=== PATIENT | male | born 1965 | race Caucasian/White ===

== ENCOUNTER 2017-05-09 05:15 | Emergency (ER) | payer OTHER ==
[~2017-05-09] VITALS: Ht 177.8 cm; Wt 117.9 kg
[2017-05-09 05:19] VITALS: BP 152/93
--- NOTE | 2017-05-09 06:04 | PHYS DOC ---
Past Medical History Past Medical History: No Pertinent History Past Surgical History: Other Additional Past Surgical Histo: KNEE SURGERY Alcohol Use: None Drug Use: None Adult General Chief Complaint Chief Complaint: LACERATION/AVULSION HPI HPI Patient is a 51 year old who presents with fall from a ladder while at work. Patient slipped and fell catching his hard hat on the ladder as he fell. Patient has 6 cm stellate laceration over right parietal scalp. He is controlled. Tetanus is out of date. Patient denies loss of consciousness. Denies posterior neck pain or back pain. Reports right lower paravertebral lumbar back pain. Back pain is described as minor and more chronic in nature. No other injuries or pain complaints. Patient is not on anticoagulation therapy. Review of Systems Review of Systems ROS as per HPI.[] All other systems were reviewed and found to be within normal limits, except as documented in this note. Current Medications Current Medications Current Medications Medications (Trade) Dose Ordered Sig/Feng Start Time Stop Time Status Last Admin Dose Admin Tetanus/ Diphtheria Toxoids (Tenivac Syringe) 0.5 ml ONCE ONCE 05/09/17 06:15 05/09/17 06:16 Allergies Allergies Allergies Coded Allergies Type Severity Reaction Last Updated Verified No Known Drug Allergies 05/09/17 No Physical Exam Physical Exam Constitutional: Well developed, well nourished, no acute distress, non-toxic appearance. [] HENT: Normocephalic, 6 cm stellate full thickness laceration to scalp, bilateral external ears normal, oropharynx moist, nose normal. [] Eyes: PERRLA, EOMI. [] Neck: Normal range of motion, no tenderness, supple, no stridor. [] Cardiovascular:Heart rate regular rhythm, no murmur [] Lungs & Thorax: Bilateral breath sounds clear to auscultation [] Abdomen: Bowel sounds normal, soft, no tenderness. [] Skin: Warm, dry. [] Back: No tenderness. [] Extremities: No tenderness. [] Neurologic: Alert and oriented X 3, normal motor function, normal sensory function, no focal deficits noted. [] Psychologic: Affect normal, judgement normal, mood normal. [] Current Patient Data Vital Signs Vital Signs Date Time Temp Pulse Resp B/P (MAP) Pulse Ox O2 Delivery O2 Flow Rate FiO2 05/09/17 05:19 98.3 93 16 96 Room Air 98.3 EKG EKG [] Radiology/Procedures Radiology/Procedures Laceration repair procedure note Indication: Scalp laceration Size: 6 cm Anesthesia used: None Performing physician: Dr. Elier Callahan Laceration was copiously irrigated with high pressure normal saline closed with #7 matthias. ] Course & Med Decision Making Course & Med Decision Making Pertinent Labs and Imaging studies reviewed. (See chart for details) [CHI with scalp laceration. No neck pain, loss of consciousness or persistent headache. Imaging currently not indicated. Reproducible soft tissue back pain, no midline back tenderness. Patient walks with steady gait. Laceration repaired. Typical wound care instructions given with work comp follow-up recommended. Tetanus updated. Patient verbalizes understanding agreement discharge instructions prior to departure.] Dragon Disclaimer Dragon Disclaimer This electronic medical record was generated, in whole or in part, using a voice recognition dictation system. Departure Departure Impression: Primary Impression: Fall Additional Impressions: Laceration of skin of scalp Back pain Disposition: 01 HOME, SELF-CARE Condition: GOOD Patient Instructions: Head Injury, Adult, [id number], Lumbosacral Strain, Laceration Care, Adult, [id number] Additional Instructions: You were evaluated in the ED for head injury, scalp laceration and back pain resulting from a fall. Laceration was closed with 7 matthias. Please take ibuprofen for back pain and headache. Take Flexeril as needed for additional relief of back pain. Take antibiotics for the next 5 days. Follow-up with your work comp doctor later today for further instructions/work restrictions. Sunflower should be removed in 7-10 days. Problem Qualifiers ELIER CALLAHAN DO May 09, 2017 06:04
[2017-05-09] MEDS ORDERED: TETANUS AND DIPHTHERIA TOX/PF 0.5 ML DISP.SYRIN. VAX IM ONE (06:15)
== END 2017-05-09 06:14 | disposition home or self-care (01) ==
LOC: ER 05:15
DX: S01.01XA Laceration without foreign body of scalp, initial encounter (principal); M54.5 Low back pain; W11.XXXA Fall on and from ladder, initial encounter; Y93.89 Activity, other specified; Y92.69 Other specified industrial and construction area as the place of occurrence of the external cause; Y99.8 Other external cause status
CPT/HCPCS: 12002; 90471; 90714; 99283-25